=== PATIENT | female | born 1975 | race Caucasian/White ===

== ENCOUNTER 2018-06-16 13:58 | Outpatient (CLI) | payer OTHER ==
[~2018-06-16 13:58] MED LIST: ALLEGRA ALLERG180 MG PO; CABERGOLINE0.5 MG PO; GILTUSS TR TAB1 EACH PO; PROZAC40 MG PO; TESSALON PERLE100 MG PO; ZITHROMAX TRI-500 MG PO; ZYRTEC10 MG PO
== END 2018-06-16 14:00 | disposition home or self-care (01) ==
LOC: LAB 13:58
DX: N39.0 Urinary tract infection, site not specified (principal); N91.0 Primary amenorrhea

== ENCOUNTER 2018-12-22 07:45 | Outpatient (CLI) | payer OTHER | END 2018-12-22 07:52 | disposition home or self-care (01) | LOC: MAMO-SONO 07:45 | DX: Z12.31 Encounter for screening mammogram for malignant neoplasm of breast (principal) ==

== ENCOUNTER 2019-05-23 07:23 | Outpatient (CLI) | payer OTHER | END 2019-05-23 07:26 | disposition home or self-care (01) | LOC: SONOGRAMA 07:23 | DX: N60.01 Solitary cyst of right breast (principal) ==

== ENCOUNTER 2019-07-30 10:53 | Outpatient (CLI) | payer OTHER | END 2019-07-30 10:55 | disposition home or self-care (01) | LOC: RAD 10:53 | DX: J40 Bronchitis, not specified as acute or chronic (principal); J44.9 Chronic obstructive pulmonary disease, unspecified; R07.89 Other chest pain; I10 Essential (primary) hypertension ==

== ENCOUNTER 2020-01-26 07:47 | Outpatient (CLI) | payer OTHER | END 2020-01-26 07:56 | disposition home or self-care (01) | LOC: MAMO-SONO 07:47 | DX: N60.11 Diffuse cystic mastopathy of right breast (principal); N60.12 Diffuse cystic mastopathy of left breast ==

== ENCOUNTER 2021-03-07 10:07 | Outpatient (CLI) | payer OTHER | END 2021-03-07 10:10 | disposition home or self-care (01) | LOC: MAMO-SONO 10:07 | PROVIDERS: ATTEND Obstetrics & Gynecology | DX: Z12.31 Encounter for screening mammogram for malignant neoplasm of breast (principal); N60.11 Diffuse cystic mastopathy of right breast; N60.12 Diffuse cystic mastopathy of left breast ==

== ENCOUNTER 2021-04-05 11:34 | Outpatient (CLI) | payer OTHER | END 2021-04-05 11:51 | disposition home or self-care (01) | LOC: SONOGRAMA 11:34 | PROVIDERS: ATTEND Surgery | DX: D24.1 Benign neoplasm of right breast (principal); N60.11 Diffuse cystic mastopathy of right breast; N60.12 Diffuse cystic mastopathy of left breast ==

== ENCOUNTER 2021-07-18 08:08 | Outpatient (CLI) | payer OTHER | END 2021-07-18 08:24 | disposition home or self-care (01) | LOC: MRI 08:08 | PROVIDERS: ATTEND Specialist | DX: D35.2 Benign neoplasm of pituitary gland (principal) | CPT/HCPCS: 70552 ==

== ENCOUNTER 2021-08-27 11:16 | Outpatient (CLI) | payer OTHER | END 2021-08-27 11:22 | disposition home or self-care (01) | LOC: SONOGRAMA 11:16 → MAMO-SONO 12:15 | PROVIDERS: ATTEND Surgery | DX: N60.11 Diffuse cystic mastopathy of right breast (principal); N60.12 Diffuse cystic mastopathy of left breast; Z12.31 Encounter for screening mammogram for malignant neoplasm of breast ==

== ENCOUNTER 2022-03-10 07:46 | Outpatient (CLI) | payer OTHER | END 2022-03-10 08:05 | disposition home or self-care (01) | LOC: MAMO-SONO 07:46 | PROVIDERS: ATTEND Surgery | DX: N60.11 Diffuse cystic mastopathy of right breast (principal); N60.12 Diffuse cystic mastopathy of left breast ==

== ENCOUNTER 2023-03-19 07:48 | Outpatient (CLI) | payer OTHER | END 2023-03-19 08:00 | disposition home or self-care (01) | LOC: MAMO-SONO 07:48 | PROVIDERS: ATTEND Surgery | DX: N60.11 Diffuse cystic mastopathy of right breast (principal); N60.12 Diffuse cystic mastopathy of left breast ==

== ENCOUNTER 2025-04-20 10:44 | Outpatient (CLI) | payer OTHER | END 2025-04-20 10:46 | disposition home or self-care (01) | LOC: MAMO-SONO 10:44 | PROVIDERS: ATTEND Specialist | DX: N64.4 Mastodynia (principal); Z12.31 Encounter for screening mammogram for malignant neoplasm of breast ==

== ENCOUNTER 2025-05-03 19:38 | Emergency (ER) | payer OTHER ==
[~2025-05-03] VITALS: Ht 154.9 cm; Wt 61.2 kg
== END 2025-05-03 22:07 | disposition home or self-care (01) ==
LOC: ER 20:40
DX: G89.11 Acute pain due to trauma (principal); M25.511 Pain in right shoulder; R07.89 Other chest pain

== ENCOUNTER 2025-08-14 10:00 | Day surgery (SDC) | payer OTHER ==
[~2025-08-14 10:00] MED LIST changes: +DIPHENHYDRAMINE HCL 50 MG/ML VIAL 1ML IV ONE; +MIDAZOLAM HCL 2 MG/2 ML VIAL IV ONE; +ONDANSETRON HCL 2 MG/ML VIAL IV ONE; +fentaNYL CITRATE 50 MCG/ML AMPUL IV PUSH ONE
== END 2025-08-14 10:15 | disposition home or self-care (01) ==
LOC: AMB-ENDOS 10:00
PROVIDERS: ATTEND Colon & Rectal Surgery
DX: D12.4 Benign neoplasm of descending colon (principal); D12.0 Benign neoplasm of cecum; K63.5 Polyp of colon; K62.5 Hemorrhage of anus and rectum; Z12.11 Encounter for screening for malignant neoplasm of colon